=== PATIENT | female | born 1945 | race Caucasian/White ===

== ENCOUNTER 2018-05-07 20:20 | Inpatient (IN) | payer MEDICARE, MEDICAID ==
[~2018-05-07] VITALS: Ht 167.6 cm; Wt 156.8 kg
[~2018-05-07 20:20] MED LIST: ALBU2.5V11 IH; DILT240C PO; EPIN0.3P3 SQ; INSU100V8 SQ; NITR0.4T28 SL; PARO20TA4 PO; POTA20TA14 PO
--- NOTE | 2018-05-07 20:30 | NUR ---
PT HERE FROM [facility] WITH DX OF AFIB WITH RVR. PT PLACED ON MONITOR, NIBP, O2 SAT AND 4LM NC. IV STARTED BY AKIRA HANKINS AFTER PT DC'D IV STARTED IN [facility].
[2018-05-07 20:54] LABS: BASOPHILS # (AUTO) 0.08 x10^3/uL (0-0.1); BASOPHILS % (AUTO) 1 % (0-1); EOSINOPHILS # (AUTO) 0.09 x10^3/uL (0-0.4); EOSINOPHILS % (AUTO) 1 % (1-7); LYMPHOCYTES # (AUTO) 0.31 x10^3/uL (1-3.4); LYMPHOCYTES % (AUTO) 2 % (22-44); MD NO; MEAN CORPUSCULAR HEMOGLOBIN 20.5 pg (27.0-34.8); MEAN CORPUSCULAR HGB CONC 30.6 g/dL (32.4-35.8); MEAN PLATELET VOLUME 8.8 fL (7.4-10.4); MONOCYTES # (AUTO) 0.45 x10^3/uL (0.2-0.8); MONOCYTES % (AUTO) 3 % (2-9); NEUTROPHILS # (AUTO) 15.78 x10^3/uL (1.8-6.8); NEUTROPHILS % (AUTO) 94 % (42-75); PLATELET COUNT 198 x10^3/uL (130-400); RED BLOOD COUNT 3.99 x10^6/uL (3.82-5.3); RED CELL DISTRIBUTION WIDTH 18.5 % (9.6-15.2)
[2018-05-07] MEDS ORDERED: SODIUM CHLORIDE FLUSH 10ML SYR IVF ONE (21:00)
[2018-05-07 21:04] LABS: INTERNATIONAL NORMALIZED RATIO 1.4 (0.93-1.1); PROTHROMBIN TIME 14.6 Seconds (9.6-11.5)
[2018-05-07 21:07] LABS: ALANINE AMINOTRANSFERASE 12 U/L (12-78); ALBUMIN 2.9 g/dL (3.4-5.0); ANION GAP 5 mmol/L (5-15); CALCIUM 8.4 mg/dL (8.5-10.1); CHLORIDE 110 mmol/L (98-107); CREATININE 0.86 mg/dL (0.55-1.02)
[2018-05-07 21:12] LABS: ALKALINE PHOSPHATASE 104 U/L (45-117); BILIRUBIN,TOTAL 1.2 mg/dL (0.2-1.0); TOTAL PROTEIN 6.8 g/dL (6.4-8.2); TROPONIN I < 0.015 ng/mL (0.000-0.045)
--- NOTE | 2018-05-07 21:20 | NUR ---
NOTIFIED OF ELEVATED TEMP, ORDERS RECEIVED.
[2018-05-07] MEDS ORDERED: ACETAMINOPHEN 650 MG SUPP ONE (21:27)
[2018-05-07] MEDS ORDERED: SODIUM CHLORIDE 0.9% 1,000ML IVBOLUS ONE (21:30)
[2018-05-07] MEDS ORDERED: ACETAMINOPHEN 650 MG SUPP PR PRN (21:30)
[2018-05-07] MEDS ORDERED: CEFTRIAXONE 1,000 MG in SODIUM CHLORIDE 0.9% 50 ML IVPB ONE (21:30)
[2018-05-07] MEDS ORDERED: CEFTRIAXONE PMX 1GM/50ML 50 ML ONE (21:42)
[2018-05-07] MEDS ORDERED: SODIUM CHLORIDE 0.9%, 500ML IVBOLUS ONE (22:30)
[2018-05-07] MEDS ORDERED: DILTIAZEM 5 MG/ML, 5ML IVPush ONE (22:30)
[2018-05-07] MEDS ORDERED: DILTIAZEM 5 MG/ML, 5ML ONE (22:31)
--- NOTE | 2018-05-07 22:55 | NUR ---
ADMITTING RELIEF DOCKING MASTER AT [facility] FOR ADMISSION ASSESSMENT.
[2018-05-07] MEDS ORDERED: BACL20TA PO (23:19)
[2018-05-07] MEDS ORDERED: OMEP40CA6 PO (23:19)
[2018-05-07] MEDS ORDERED: FOLI0.4T2 PO (23:19)
[2018-05-07] MEDS ORDERED: DULO20CA45 PO (23:19)
[2018-05-07] MEDS ORDERED: METO50TA4 PO (23:19)
[2018-05-07] MEDS ORDERED: DOCU-131 PO (23:19)
[2018-05-07] MEDS ORDERED: DAPA1TAB4 PO (23:19)
[2018-05-07] MEDS ORDERED: FESO8TAB PO (23:19)
[2018-05-07] MEDS ORDERED: FLUT1AER INH (23:19)
[2018-05-07] MEDS ORDERED: GABA300C10 PO (23:19)
[2018-05-07] MEDS ORDERED: CELE200C PO (23:19)
[2018-05-07] MEDS ORDERED: ATOR-2 PO (23:19)
[2018-05-07] MEDS ORDERED: FERR324T18 PO (23:19)
[2018-05-07] MEDS ORDERED: SPIR50TA4 PO (23:19)
[2018-05-07] MEDS ORDERED: FERR324T5 PO (23:19)
--- NOTE | 2018-05-07 23:19 | NUR ---
BLOOD HAS BEEN CANCELLED PER HOSPITALIST. REPORT TO LAURA LOPEZ TO BE ADMITTED TO TELE ROOM [id number].
[2018-05-07] MEDS ORDERED: OXYC10TA6 PO (23:28)
[2018-05-07] MEDS ORDERED: ONDA8TAB9 PO (23:28)
[2018-05-07] MEDS ORDERED: NYST1000 PO (23:28)
[2018-05-07] MEDS ORDERED: TRAZ-137 PO (23:28)
[2018-05-07] MEDS ORDERED: INSU100V35 SQ (23:28)
[2018-05-07] MEDS ORDERED: GABAPENTIN 300 MG CAPSULE PO PRN (23:30)
[2018-05-07] MEDS ORDERED: DILTIAZEM 5 MG/ML, 5ML IVPush PRN (23:30)
[2018-05-07] MEDS ORDERED: LIDODERM 5% PATCH TD PRN (23:30)
[2018-05-07] MEDS ORDERED: ONDANSETRON 2MG/ML, 2ML IVPush PRN (23:30)
[2018-05-07 23:48] VITALS: BP 132/73
[2018-05-08] MEDS: ENOXAPARIN 150 MG/ML SQ SCH ×2 (00:49→12:07)
[2018-05-08] MEDS: AZITHROMYCIN 500 MG in SODIUM CHLORIDE 0.9% 250 ML IV SCH (00:49)
[2018-05-08] MEDS: ALBUTEROL SULFATE 2.5 MG/3 ML NPPB SCH ×4 (01:00→20:30)
[2018-05-08] MEDS: ATORVASTATIN 40 MG TABLET PO SCH ×2 (01:00→20:37)
[2018-05-08] MEDS ORDERED: ONDANSETRON 8 MG TABLET PO PRN (01:00)
[2018-05-08] MEDS: GABAPENTIN 300MG MC SCH ×2 (01:26→09:30)
[2018-05-08] MEDS: GABAPENTIN 300 MG CAPSULE PO SCH ×4 (01:28→20:37)
[2018-05-08] MEDS: TRAZODONE 100MG TABLET PO SCH ×2 (01:28→20:38)
[2018-05-08] MEDS: NYSTATIN 500,000 UNITS/5 ML UDC PO SCH ×4 (01:29→20:37)
[2018-05-08] MEDS: INSULIN GLARGINE 100 UNITS/ML, PEN SQ-INSULIN SCH ×2 (01:56→20:51)
[2018-05-08] MEDS: INSULIN LISPRO 100 UNITS/ML, PEN SQ-INSULIN SCH ×5 (01:56→20:40)
[2018-05-08 04:00] VITALS: BP 125/67
[2018-05-08 04:51] LABS: BASOPHILS # (AUTO) 0.06 x10^3/uL (0-0.1); BASOPHILS % (AUTO) 0 % (0-1); EOSINOPHILS # (AUTO) 0.05 x10^3/uL (0-0.4); EOSINOPHILS % (AUTO) 0 % (1-7); LYMPHOCYTES # (AUTO) 0.64 x10^3/uL (1-3.4); LYMPHOCYTES % (AUTO) 4 % (22-44); MD NO; MEAN CORPUSCULAR HEMOGLOBIN 20.5 pg (27.0-34.8); MEAN CORPUSCULAR HGB CONC 30.7 g/dL (32.4-35.8); MEAN CORPUSCULAR VOLUME 66.5 fL (80-100); MEAN PLATELET VOLUME 9.3 fL (7.4-10.4); MONOCYTES # (AUTO) 0.54 x10^3/uL (0.2-0.8); MONOCYTES % (AUTO) 4 % (2-9); NEUTROPHILS # (AUTO) 14.18 x10^3/uL (1.8-6.8); NEUTROPHILS % (AUTO) 92 % (42-75); PLATELET COUNT 169 x10^3/uL (130-400); RED BLOOD COUNT 3.61 x10^6/uL (3.82-5.3); RED CELL DISTRIBUTION WIDTH 18.1 % (9.6-15.2)
[2018-05-08 05:01] LABS: ANION GAP 5 mmol/L (5-15); CALCIUM 8.4 mg/dL (8.5-10.1); CHLORIDE 112 mmol/L (98-107)
[2018-05-08 05:04] LABS: CREATININE 0.85 mg/dL (0.55-1.02)
[2018-05-08] MEDS: METOPROLOL SUCCINATE 50 MG TAB.ER.24H PO SCH (06:51)
[2018-05-08] MEDS: OMEPRAZOLE 20 MG CAPSULE.DR PO SCH (06:51)
[2018-05-08 07:30] VITALS: BP 116/76
[2018-05-08] MEDS: OXYBUTYNIN CHLORIDE 5 MG TABLET PO SCH ×4 (09:00→20:37)
[2018-05-08] MEDS: BUDESONIDE 0.5 MG/2 ML INHA INH SCH ×2 (09:00→20:30)
[2018-05-08] MEDS ORDERED: FLUTICASONE/VILANTEROL 100-25MCG/INH INH SCH (09:00)
[2018-05-08] MEDS: FERROUS GLUCONATE 324 MG TABLET PO SCH (09:37)
[2018-05-08] MEDS: DOCUSATE 100 MG CAPSULE PO SCH (09:37)
[2018-05-08] MEDS: DULOXETINE 20 MG CAPSULE.DR PO SCH (09:37)
[2018-05-08] MEDS: LISINOPRIL 10 MG TABLET PO SCH (09:37)
[2018-05-08] MEDS: CEFTRIAXONE PMX 1GM/50ML 50 ML IV SCH ×2 (09:38→22:21)
[2018-05-08] MEDS: FOLIC ACID 1 MG TABLET PO SCH (09:38)
[2018-05-08] MEDS: SPIRONOLACTONE 50 MG TABLET PO SCH (09:38)
[2018-05-08] MEDS: ACETAMINOPHEN 325 MG TABLET PO PRN ×2 (12:03→16:38)
[2018-05-08 12:57] VITALS: BP 122/78
[2018-05-08] MEDS: SODIUM CHLORIDE 0.9% 1,000 ML IV SCH ×2 (14:37)
[2018-05-08] MEDS: BACLOFEN 10 MG TABLET PO PRN (16:38)
[2018-05-08 19:56] VITALS: BP 135/68
[2018-05-09] VITALS (12 sets, daily range): BP systolic 86–130; BP diastolic 51–82
[2018-05-09] MEDS: NYSTATIN 500,000 UNITS/5 ML UDC PO SCH ×4 (01:34→21:33)
[2018-05-09] MEDS: AZITHROMYCIN 500 MG in SODIUM CHLORIDE 0.9% 250 ML IV SCH (01:34)
[2018-05-09] MEDS: ENOXAPARIN 150 MG/ML SQ SCH (01:36)
[2018-05-09] MEDS: SODIUM CHLORIDE 0.9% 1,000 ML IV SCH ×3 (01:37→21:45)
[2018-05-09] MEDS: ALBUTEROL SULFATE 2.5 MG/3 ML NPPB SCH ×4 (02:55→20:41)
[2018-05-09 03:08] LABS: MD YES; MEAN CORPUSCULAR HEMOGLOBIN 20.4 pg (27.0-34.8); MEAN CORPUSCULAR HGB CONC 30.4 g/dL (32.4-35.8); MEAN CORPUSCULAR VOLUME 67.2 fL (80-100); MEAN PLATELET VOLUME 10.2 fL (7.4-10.4); PLATELET COUNT 181 x10^3/uL (130-400); RED BLOOD COUNT 3.42 x10^6/uL (3.82-5.3); RED CELL DISTRIBUTION WIDTH 19.1 % (9.6-15.2)
[2018-05-09 03:19] LABS: ALANINE AMINOTRANSFERASE 11 U/L (12-78); ALBUMIN 2.4 g/dL (3.4-5.0); ANION GAP 7 mmol/L (5-15); CALCIUM 7.8 mg/dL (8.5-10.1); CHLORIDE 112 mmol/L (98-107); CREATININE 0.69 mg/dL (0.55-1.02)
[2018-05-09 03:21] LABS: ALKALINE PHOSPHATASE 87 U/L (45-117); BILIRUBIN,TOTAL 0.5 mg/dL (0.2-1.0); TOTAL PROTEIN 5.8 g/dL (6.4-8.2)
[2018-05-09 03:40] LABS: EOS#(MANUAL) 0.31 x10^3/uL (0.0-0.4); EOS% (MANUAL) 6 % (1-7); LYMPH#(MANUAL) 0.83 x10^3/uL (1-3.4); LYMPHS% (MANUAL) 16 % (22-44); MONOS#(MANUAL) 0.21 x10^3/uL (0.3-2.7); MONOS% (MANUAL) 4 % (2-9); SEG#(MANUAL) 3.85 x10^3/uL (1.8-6.8); SEGS% (MANUAL) 74 % (42-75)
[2018-05-09 03:41] LABS: <PLATELET ESTIMATE> ADEQUATE; <PLT MORPHOLOGY> NORMAL PLT MORPH; <RBC MORPHOLOGY> NORMAL
[2018-05-09] MEDS: OMEPRAZOLE 20 MG CAPSULE.DR PO SCH (06:02)
[2018-05-09] MEDS: INSULIN LISPRO 100 UNITS/ML, PEN SQ-INSULIN SCH ×4 (08:08→21:00)
[2018-05-09] MEDS: DOCUSATE 100 MG CAPSULE PO SCH (08:32)
[2018-05-09] MEDS: SPIRONOLACTONE 50 MG TABLET PO SCH (08:32)
[2018-05-09] MEDS: DULOXETINE 20 MG CAPSULE.DR PO SCH (08:32)
[2018-05-09] MEDS: OXYBUTYNIN CHLORIDE 5 MG TABLET PO SCH ×3 (08:33→21:34)
[2018-05-09] MEDS: GABAPENTIN 300 MG CAPSULE PO SCH ×3 (08:33→21:33)
[2018-05-09] MEDS: LISINOPRIL 10 MG TABLET PO SCH (08:33)
[2018-05-09] MEDS: FOLIC ACID 1 MG TABLET PO SCH (08:33)
[2018-05-09] MEDS: FERROUS GLUCONATE 324 MG TABLET PO SCH (08:33)
[2018-05-09] MEDS: METOPROLOL SUCCINATE 50 MG TAB.ER.24H PO SCH (08:38)
[2018-05-09] MEDS: BUDESONIDE 0.5 MG/2 ML INHA INH SCH ×2 (09:00→20:41)
[2018-05-09] MEDS: CEFTRIAXONE PMX 1GM/50ML 50 ML IV SCH ×2 (10:52→22:31)
[2018-05-09] MEDS: TRAZODONE 100MG TABLET PO SCH (21:33)
[2018-05-09] MEDS: ATORVASTATIN 40 MG TABLET PO SCH (21:33)
[2018-05-09] MEDS: INSULIN GLARGINE 100 UNITS/ML, PEN SQ-INSULIN SCH (21:40)
[2018-05-10] MEDS: NYSTATIN 500,000 UNITS/5 ML UDC PO SCH ×4 (01:30→20:28)
[2018-05-10] MEDS: AZITHROMYCIN 500 MG in SODIUM CHLORIDE 0.9% 250 ML IV SCH (01:30)
[2018-05-10 02:47] VITALS: BP 99/68
[2018-05-10] MEDS: ALBUTEROL SULFATE 2.5 MG/3 ML NPPB SCH ×4 (03:00→20:14)
[2018-05-10 05:10] LABS: MEAN CORPUSCULAR HEMOGLOBIN 20.9 pg (27.0-34.8); MEAN CORPUSCULAR HGB CONC 30.1 g/dL (32.4-35.8); MEAN CORPUSCULAR VOLUME 69.5 fL (80-100); MEAN PLATELET VOLUME 10.2 fL (7.4-10.4); PLATELET COUNT 184 x10^3/uL (130-400); RED BLOOD COUNT 4.16 x10^6/uL (3.82-5.3); RED CELL DISTRIBUTION WIDTH 18.9 % (9.6-15.2)
[2018-05-10 05:20] LABS: ANION GAP 5 mmol/L (5-15); CALCIUM 7.9 mg/dL (8.5-10.1); CHLORIDE 112 mmol/L (98-107); CREATININE 0.77 mg/dL (0.55-1.02)
[2018-05-10] MEDS: OMEPRAZOLE 20 MG CAPSULE.DR PO SCH (05:44)
[2018-05-10] MEDS: METOPROLOL SUCCINATE 50 MG TAB.ER.24H PO SCH (05:45)
[2018-05-10 06:47] LABS: BASOPHILS # (AUTO) 0.01 x10^3/uL (0-0.1); BASOPHILS % (AUTO) 0 % (0-1); EOSINOPHILS # (AUTO) 0.14 x10^3/uL (0-0.4); EOSINOPHILS % (AUTO) 2 % (1-7); LYMPHOCYTES # (AUTO) 0.58 x10^3/uL (1-3.4); LYMPHOCYTES % (AUTO) 10 % (22-44); MD SCAN; MONOCYTES # (AUTO) 0.61 x10^3/uL (0.2-0.8); MONOCYTES % (AUTO) 10 % (2-9); NEUTROPHILS # (AUTO) 4.69 x10^3/uL (1.8-6.8); NEUTROPHILS % (AUTO) 78 % (42-75)
[2018-05-10] MEDS: BUDESONIDE 0.5 MG/2 ML INHA INH SCH ×2 (07:01→20:14)
[2018-05-10 07:09] VITALS: BP 122/76
[2018-05-10 08:20] VITALS: BP 116/71
[2018-05-10] MEDS: DULOXETINE 20 MG CAPSULE.DR PO SCH (08:21)
[2018-05-10] MEDS: INSULIN LISPRO 100 UNITS/ML, PEN SQ-INSULIN SCH ×4 (08:21→20:30)
[2018-05-10] MEDS: LISINOPRIL 10 MG TABLET PO SCH (08:22)
[2018-05-10] MEDS: GABAPENTIN 300 MG CAPSULE PO SCH ×3 (08:22→20:29)
[2018-05-10] MEDS: FOLIC ACID 1 MG TABLET PO SCH (08:23)
[2018-05-10] MEDS: SPIRONOLACTONE 50 MG TABLET PO SCH (08:23)
[2018-05-10] MEDS: FERROUS GLUCONATE 324 MG TABLET PO SCH (08:23)
[2018-05-10] MEDS: DOCUSATE 100 MG CAPSULE PO SCH (08:23)
[2018-05-10] MEDS: OXYBUTYNIN CHLORIDE 5 MG TABLET PO SCH ×3 (08:23→20:29)
[2018-05-10] MEDS: ACETAMINOPHEN 325 MG TABLET PO PRN (10:17)
[2018-05-10] MEDS: CEFTRIAXONE PMX 1GM/50ML 50 ML IV SCH (10:18)
[2018-05-10 12:58] VITALS: BP 113/73
[2018-05-10 19:55] VITALS: BP 119/74
[2018-05-10] MEDS: ATORVASTATIN 40 MG TABLET PO SCH (20:28)
[2018-05-10] MEDS: TRAZODONE 100MG TABLET PO SCH (20:29)
[2018-05-10] MEDS: INSULIN GLARGINE 100 UNITS/ML, PEN SQ-INSULIN SCH (20:30)
[2018-05-11] MEDS: CEFTRIAXONE PMX 1GM/50ML 50 ML IV SCH (00:19)
[2018-05-11] MEDS: AZITHROMYCIN 500 MG in SODIUM CHLORIDE 0.9% 250 ML IV SCH (01:15)
[2018-05-11 01:49] VITALS: BP 101/68
[2018-05-11] MEDS: NYSTATIN 500,000 UNITS/5 ML UDC PO SCH ×4 (02:23→21:29)
[2018-05-11] MEDS: ALBUTEROL SULFATE 2.5 MG/3 ML NPPB SCH ×4 (03:00→19:48)
[2018-05-11] MEDS: OMEPRAZOLE 20 MG CAPSULE.DR PO SCH (05:15)
[2018-05-11] MEDS: METOPROLOL SUCCINATE 50 MG TAB.ER.24H PO SCH (05:15)
[2018-05-11 05:30] LABS: BASOPHILS % (AUTO) 2 % (0-1); EOSINOPHILS # (AUTO) 0.15 x10^3/uL (0-0.4); EOSINOPHILS % (AUTO) 3 % (1-7); LYMPHOCYTES # (AUTO) 0.89 x10^3/uL (1-3.4); LYMPHOCYTES % (AUTO) 16 % (22-44); MD NO; MEAN CORPUSCULAR HEMOGLOBIN 21.5 pg (27.0-34.8); MEAN CORPUSCULAR HGB CONC 30.9 g/dL (32.4-35.8); MEAN CORPUSCULAR VOLUME 69.7 fL (80-100); MEAN PLATELET VOLUME 10.1 fL (7.4-10.4); MONOCYTES # (AUTO) 0.53 x10^3/uL (0.2-0.8); MONOCYTES % (AUTO) 9 % (2-9); NEUTROPHILS # (AUTO) 3.99 x10^3/uL (1.8-6.8); NEUTROPHILS % (AUTO) 71 % (42-75); PLATELET COUNT 195 x10^3/uL (130-400); RED BLOOD COUNT 4.15 x10^6/uL (3.82-5.3); RED CELL DISTRIBUTION WIDTH 19.4 % (9.6-15.2)
[2018-05-11 05:37] LABS: ALANINE AMINOTRANSFERASE 12 U/L (12-78); ALBUMIN 2.5 g/dL (3.4-5.0); ANION GAP 6 mmol/L (5-15); CALCIUM 8.2 mg/dL (8.5-10.1); CHLORIDE 110 mmol/L (98-107)
[2018-05-11 05:39] LABS: ALKALINE PHOSPHATASE 105 U/L (45-117); BILIRUBIN,TOTAL 0.7 mg/dL (0.2-1.0); TOTAL PROTEIN 6.1 g/dL (6.4-8.2)
[2018-05-11] MEDS: INSULIN LISPRO 100 UNITS/ML, PEN SQ-INSULIN SCH ×4 (07:00→21:00)
[2018-05-11] MEDS: BUDESONIDE 0.5 MG/2 ML INHA INH SCH ×2 (07:10→19:48)
[2018-05-11 08:00] VITALS: BP 112/74
[2018-05-11] MEDS: ACETAMINOPHEN 325 MG TABLET PO PRN ×2 (09:59→17:36)
[2018-05-11] MEDS: CEFDINIR 300 MG CAPSULE PO SCH ×2 (09:59→21:31)
[2018-05-11] MEDS: FOLIC ACID 1 MG TABLET PO SCH (09:59)
[2018-05-11] MEDS: LISINOPRIL 10 MG TABLET PO SCH (09:59)
[2018-05-11] MEDS: GABAPENTIN 300 MG CAPSULE PO SCH ×3 (09:59→21:33)
[2018-05-11] MEDS: DULOXETINE 20 MG CAPSULE.DR PO SCH (09:59)
[2018-05-11] MEDS: OXYBUTYNIN CHLORIDE 5 MG TABLET PO SCH ×3 (09:59→21:33)
[2018-05-11] MEDS: GUAIFENESIN 200 MG TABLET PO SCH ×3 (09:59→21:36)
[2018-05-11] MEDS: SPIRONOLACTONE 50 MG TABLET PO SCH (10:00)
[2018-05-11] MEDS: FERROUS GLUCONATE 324 MG TABLET PO SCH (10:00)
[2018-05-11] MEDS: DOCUSATE 100 MG CAPSULE PO SCH (10:00)
[2018-05-11] MEDS: DOXYCYCLINE 100MG TABLET PO SCH ×2 (10:00→21:32)
[2018-05-11 13:58] VITALS: BP 121/80
[2018-05-11 19:15] VITALS: BP 117/79
[2018-05-11] MEDS: INSULIN GLARGINE 100 UNITS/ML, PEN SQ-INSULIN SCH (20:53)
[2018-05-11] MEDS: DOCUSATE 100 MG CAPSULE PO PRN (21:32)
[2018-05-11] MEDS: ATORVASTATIN 40 MG TABLET PO SCH (21:33)
[2018-05-11] MEDS: TRAZODONE 100MG TABLET PO SCH (21:33)
[2018-05-12 01:55] VITALS: BP 116/80
[2018-05-12] MEDS: NYSTATIN 500,000 UNITS/5 ML UDC PO SCH ×4 (02:04→22:05)
[2018-05-12] MEDS: ALBUTEROL SULFATE 2.5 MG/3 ML NPPB SCH ×4 (03:00→18:45)
[2018-05-12] MEDS: GUAIFENESIN 200 MG TABLET PO SCH ×4 (05:04→22:05)
[2018-05-12] MEDS: OMEPRAZOLE 20 MG CAPSULE.DR PO SCH (05:04)
[2018-05-12] MEDS: METOPROLOL SUCCINATE 50 MG TAB.ER.24H PO SCH (05:04)
[2018-05-12 05:25] LABS: BASOPHILS # (AUTO) 0.04 x10^3/uL (0-0.1); BASOPHILS % (AUTO) 1 % (0-1); EOSINOPHILS % (AUTO) 4 % (1-7); LYMPHOCYTES # (AUTO) 0.97 x10^3/uL (1-3.4); LYMPHOCYTES % (AUTO) 18 % (22-44); MD NO; MEAN CORPUSCULAR HEMOGLOBIN 21.1 pg (27.0-34.8); MEAN CORPUSCULAR HGB CONC 30.1 g/dL (32.4-35.8); MEAN CORPUSCULAR VOLUME 70.3 fL (80-100); MEAN PLATELET VOLUME 10.4 fL (7.4-10.4); MONOCYTES # (AUTO) 0.62 x10^3/uL (0.2-0.8); MONOCYTES % (AUTO) 11 % (2-9); NEUTROPHILS # (AUTO) 3.63 x10^3/uL (1.8-6.8); NEUTROPHILS % (AUTO) 67 % (42-75); PLATELET COUNT 175 x10^3/uL (130-400); RED BLOOD COUNT 4.14 x10^6/uL (3.82-5.3); RED CELL DISTRIBUTION WIDTH 19.3 % (9.6-15.2)
[2018-05-12] MEDS: INSULIN LISPRO 100 UNITS/ML, PEN SQ-INSULIN SCH ×4 (07:00→21:00)
[2018-05-12 07:40] VITALS: BP 124/83
[2018-05-12] MEDS: BUDESONIDE 0.5 MG/2 ML INHA INH SCH ×2 (09:00→18:46)
[2018-05-12] MEDS: FOLIC ACID 1 MG TABLET PO SCH (10:35)
[2018-05-12] MEDS: DOCUSATE 100 MG CAPSULE PO SCH (10:35)
[2018-05-12] MEDS: DOXYCYCLINE 100MG TABLET PO SCH ×2 (10:36→22:05)
[2018-05-12] MEDS: CEFDINIR 300 MG CAPSULE PO SCH ×2 (10:36→21:00)
[2018-05-12] MEDS: SPIRONOLACTONE 50 MG TABLET PO SCH (10:36)
[2018-05-12] MEDS: OXYBUTYNIN CHLORIDE 5 MG TABLET PO SCH ×3 (10:36→22:06)
[2018-05-12] MEDS: DULOXETINE 20 MG CAPSULE.DR PO SCH (10:36)
[2018-05-12] MEDS: GABAPENTIN 300 MG CAPSULE PO SCH ×3 (10:36→22:05)
[2018-05-12] MEDS: FERROUS GLUCONATE 324 MG TABLET PO SCH (10:36)
[2018-05-12] MEDS: LISINOPRIL 10 MG TABLET PO SCH (10:36)
[2018-05-12] MEDS: DOCUSATE 100 MG CAPSULE PO PRN (10:37)
[2018-05-12] MEDS: BACLOFEN 10 MG TABLET PO PRN (13:00)
[2018-05-12 13:45] VITALS: BP 108/64
[2018-05-12 20:00] VITALS: BP 134/81
[2018-05-12] MEDS: TRAZODONE 100MG TABLET PO SCH (21:00)
[2018-05-12] MEDS: ATORVASTATIN 40 MG TABLET PO SCH (22:05)
[2018-05-12] MEDS: INSULIN GLARGINE 100 UNITS/ML, PEN SQ-INSULIN SCH (22:23)
[2018-05-13 01:40] VITALS: BP 132/68
[2018-05-13] MEDS: ALBUTEROL SULFATE 2.5 MG/3 ML NPPB SCH ×4 (02:30→21:00)
[2018-05-13] MEDS: GUAIFENESIN 200 MG TABLET PO SCH ×4 (05:52→20:53)
[2018-05-13] MEDS: NYSTATIN 500,000 UNITS/5 ML UDC PO SCH ×4 (05:52→20:53)
[2018-05-13] MEDS: NYSTATIN TOPICAL POWDER 15GM TP SCH ×3 (05:52→21:00)
[2018-05-13] MEDS: OMEPRAZOLE 20 MG CAPSULE.DR PO SCH (05:53)
[2018-05-13 05:56] VITALS: BP 130/82
[2018-05-13] MEDS: METOPROLOL SUCCINATE 50 MG TAB.ER.24H PO SCH (06:02)
[2018-05-13] MEDS: INSULIN LISPRO 100 UNITS/ML, PEN SQ-INSULIN SCH ×4 (07:00→20:54)
[2018-05-13 07:02] VITALS: BP 119/78
[2018-05-13] MEDS: BUDESONIDE 0.5 MG/2 ML INHA INH SCH ×2 (07:33→21:00)
[2018-05-13] MEDS: CEFDINIR 300 MG CAPSULE PO SCH ×2 (09:23→21:04)
[2018-05-13] MEDS: FERROUS GLUCONATE 324 MG TABLET PO SCH (09:23)
[2018-05-13] MEDS: GABAPENTIN 300 MG CAPSULE PO SCH ×3 (09:23→20:53)
[2018-05-13] MEDS: OXYBUTYNIN CHLORIDE 5 MG TABLET PO SCH ×3 (09:23→20:53)
[2018-05-13] MEDS: BACLOFEN 10 MG TABLET PO PRN (09:23)
[2018-05-13] MEDS: DULOXETINE 20 MG CAPSULE.DR PO SCH (09:23)
[2018-05-13] MEDS: DOCUSATE 100 MG CAPSULE PO SCH (09:23)
[2018-05-13] MEDS: DOXYCYCLINE 100MG TABLET PO SCH ×2 (09:23→20:53)
[2018-05-13] MEDS: SPIRONOLACTONE 50 MG TABLET PO SCH (09:23)
[2018-05-13] MEDS: LISINOPRIL 10 MG TABLET PO SCH (09:24)
[2018-05-13] MEDS: FOLIC ACID 1 MG TABLET PO SCH (09:24)
[2018-05-13 12:14] VITALS: BP 134/75
--- NOTE | 2018-05-13 12:16 | NUR ---
REC: Chopped diet with thin liquids per patient request due to difficulty with mastication due to inadequate dentition Addendum: 05/13/18 at [address] Amended: Links added.
[2018-05-13 20:03] VITALS: BP 133/85
[2018-05-13] MEDS: ARTIFICIAL TEARS 15 DROP/ML BOTTLE EACHEYE SCH ×2 (20:50→21:04)
[2018-05-13] MEDS: ATORVASTATIN 40 MG TABLET PO SCH (20:53)
[2018-05-13] MEDS: TRAZODONE 100MG TABLET PO SCH (20:54)
[2018-05-13] MEDS: INSULIN GLARGINE 100 UNITS/ML, PEN SQ-INSULIN SCH (21:00)
[2018-05-14 01:54] VITALS: BP 134/81
[2018-05-14] MEDS: NYSTATIN 500,000 UNITS/5 ML UDC PO SCH ×3 (02:34→16:35)
[2018-05-14] MEDS: ALBUTEROL SULFATE 2.5 MG/3 ML NPPB SCH ×3 (03:00→15:55)
[2018-05-14] MEDS: OMEPRAZOLE 20 MG CAPSULE.DR PO SCH (06:46)
[2018-05-14] MEDS: GUAIFENESIN 200 MG TABLET PO SCH ×3 (06:46→16:35)
[2018-05-14] MEDS: METOPROLOL SUCCINATE 50 MG TAB.ER.24H PO SCH (06:48)
[2018-05-14] MEDS: INSULIN LISPRO 100 UNITS/ML, PEN SQ-INSULIN SCH ×3 (07:00→16:00)
[2018-05-14 07:25] VITALS: BP 130/78
[2018-05-14] MEDS: BUDESONIDE 0.5 MG/2 ML INHA INH SCH (08:20)
[2018-05-14] MEDS ORDERED: MAGNESIUM HYDROXIDE 8%, 30ML UDC PO PRN (09:00)
[2018-05-14] MEDS ORDERED: MAGNESIUM CITRATE 300ML ORAL SOL PO ONE (09:00)
[2018-05-14] MEDS: DOCUSATE 100 MG CAPSULE PO SCH (09:31)
[2018-05-14] MEDS: NYSTATIN TOPICAL POWDER 15GM TP SCH (09:31)
[2018-05-14] MEDS: DOXYCYCLINE 100MG TABLET PO SCH (09:32)
[2018-05-14] MEDS: FERROUS GLUCONATE 324 MG TABLET PO SCH (09:32)
[2018-05-14] MEDS: GABAPENTIN 300 MG CAPSULE PO SCH ×2 (09:32→16:35)
[2018-05-14] MEDS: SPIRONOLACTONE 50 MG TABLET PO SCH (09:32)
[2018-05-14] MEDS: FOLIC ACID 1 MG TABLET PO SCH (09:32)
[2018-05-14] MEDS: DULOXETINE 20 MG CAPSULE.DR PO SCH (09:40)
[2018-05-14] MEDS: CEFDINIR 300 MG CAPSULE PO SCH (09:40)
[2018-05-14] MEDS: OXYBUTYNIN CHLORIDE 5 MG TABLET PO SCH ×2 (09:40→16:35)
[2018-05-14] MEDS: LISINOPRIL 10 MG TABLET PO SCH (09:40)
[2018-05-14] MEDS: ARTIFICIAL TEARS 15 DROP/ML BOTTLE EACHEYE SCH ×2 (09:43→16:35)
[2018-05-14] MEDS ORDERED: TIOT18CA INH (10:56)
[2018-05-14] MEDS ORDERED: INSU100I13 SQ-INSULIN (10:56)
[2018-05-14] MEDS ORDERED: GUAI200T3 PO (10:56)
[2018-05-14] MEDS ORDERED: DOXY100T PO (10:56)
[2018-05-14] MEDS ORDERED: CEFD300C37 PO (10:56)
[2018-05-14 14:32] VITALS: BP 150/93
[2018-05-14] MEDS ORDERED: LISI30TA4 PO (15:57)
== END 2018-05-14 18:53 | DRG 871 ==
LOC: ED 20:41 → EDIP 22:30 → 5SO 23:52
PROVIDERS: ADMIT Internal Medicine; ATTEND Internal Medicine
PROC: 30233N1 Transfusion of Nonautologous Red Blood Cells into Peripheral Vein, Percutaneous Approach (ICD-10-PCS; principal; 2018-05-09)
DX: A41.9 Sepsis, unspecified organism (principal); J15.9 Unspecified bacterial pneumonia; J96.00 Acute respiratory failure, unspecified whether with hypoxia or hypercapnia; J44.0 Chronic obstructive pulmonary disease with (acute) lower respiratory infection; I50.30 Unspecified diastolic (congestive) heart failure; D68.69 Other thrombophilia; E46 Unspecified protein-calorie malnutrition; J98.11 Atelectasis; Z68.43 Body mass index [BMI] 50.0-59.9, adult; I11.0 Hypertensive heart disease with heart failure; I48.0 Paroxysmal atrial fibrillation; R53.81 Other malaise; D64.9 Anemia, unspecified; E66.01 Morbid (severe) obesity due to excess calories; E11.36 Type 2 diabetes mellitus with diabetic cataract; H53.2 Diplopia; F41.1 Generalized anxiety disorder; F43.10 Post-traumatic stress disorder, unspecified; H43.813 Vitreous degeneration, bilateral; N30.90 Cystitis, unspecified without hematuria; N32.81 Overactive bladder; Z77.22 Contact with and (suspected) exposure to environmental tobacco smoke (acute) (chronic)
CPT/HCPCS: 0399T; 36415; 71045; 71250; 80048; 80053; 82962; 83036; 83605; 83735; 84145; 84484; 85025; 85610; 86850; 86900; 86923; 87040; 93005; 93306; 94640; 96365; 96375; 99291; G0378; J0456; J0696; J1650; J2405; J7613; J7626; Q0162; J1815; J7030; J7040; J7050; P9016